=== PATIENT | male | born 1955 | race Two or more races ===

== ENCOUNTER 2024-12-02 14:11 | Emergency (ER) | payer OTHER, SELFPAY ==
[2024-12-02 14:12] VITALS: BMI 22.6
[2024-12-02 14:34] VITALS: BP 131/78; PULSE 80; RESP 18; TEMP 36.7; O2SAT 98
--- NOTE | 2024-12-02 14:36 | XR_ITS ---
Examination: Hand, right 3 views Technique: Hand AP, oblique, lateral 3 views Date and time of exam: December 02, 2024 1445 hours INDICATIONS: Injured the hand today with fourth and fifth digit pain FINDINGS: Acute spiral fractures mid to distal portion proximal phalanx fifth digit No major displacement IMPRESSION: Acute fractures proximal phalanx fifth digit
--- NOTE | 2024-12-02 14:37 | EDNOTE_ITS ---
Upper Extremity Injury RME/HPI General Chief Complaint: Hand/Wrist Problems Stated Complaint: RIGHT HAND PAIN, WORK RELATED INJURY Time Seen by Provider: 12/02/24 14:24 Arrival date/time: 12/02/24 14:11 RME / HPI RME / HPI narrative: 69-year-old male patient was brought in for evaluation regarding right hand injury. Patient review of system reviewed and within normal limits except mentioned in HPI working yesterday climbing the stairs and accidentally injured his right hand resulting to bruising, pain, severity moderate. Denies any other injury no medications taken prior to arrival. Related Data Previous Rx's ?Medication ?Instructions ?Recorded amlodipine 2.5 mg tablet 2.5 mg PO QDAY #30 tabs 01/18 lisinopril 2.5 mg tablet 10 mg (4 x 2.5 mg) PO QDAY # 30 tabs 02/05/21 ibuprofen 800 mg tablet 800 mg PO Q8H PRN pain #30 t abs 12/02/24 Allergies Allergy/AdvReac Type Severity Reaction Status Date / Time No Known Allergies Allergy Verified 12/02/24 14:15 Review of Systems Review of Systems Narrative Review of Systems: Review of system reviewed and within normal limits except mentioned in HPI ED Exam Narrative Physical exam: VITAL SIGNS: Reviewed. GENERAL APPEARANCE: Alert and interactive, follows commands, no acute distress, HEAD AND FACE: Non-traumatic. ENT: PERRL, pink conjunctivitis, eyelid no trauma, Mucous membrane moist. NECK: Supple, nontender, no nuchal rigidity. CHEST: No tenderness, no crepitus, no paradoxical movement, no retractions. LUNGS: Clear, well ventilated, symmetric, no rales, no wheezing, no ronchi, no stridor, good breath sounds bilaterally. HEART: Regular rate, regular rhythm, no murmur, no gallops. ABDOMEN: Soft, positive bowel sounds, nondistended, no guarding, nontender, no rebound, no masses, RECTAL: Deferred. GENITAL: Deferred. NEUROLOGICAL: Gross motor function intact sensory function intact, Appropriate for age. MUSCULOSKELETAL: low back nontender, full range of motion. EXTREMITIES: Right hand swelling, bruising, more on the fifth metacarpal, full range of motion. SKIN: Color pink, dry, no rash, no lacerations, no abrasions, no contusions. LYMPHATICS: Deferred. Course Quality Measures none Orders Category Date Time Status splint [Splint / Immobilizer] STAT Care 12/02/24 16:15 Active XR hand RT 2V Stat Exams 12/02/24 14:36 Completed Ibuprofen Tab [Motrin Tab] Med 12/02/24 14:36 Discontinued 800 mg PO X1 ONE Vital Signs Vital signs: Vital Signs Temperature 98.0 F 12/02/24 14:34 Pulse Rate 80 12/02/24 14:34 Respiratory Rate 18 12/02/24 14:34 Blood Pressure 131/78 H 12/02/24 14:34 Pulse Oximetry (%) 98 12/02/24 14:34 Oxygen Delivery Method Room Air 12/02/24 14:34 Extremity Injury MDM Narrative [facility] Narrative:: 69-year-old male patient was brought in for evaluation regarding right hand injury. Patient review of system reviewed and within normal limits except mentioned in HPI working yesterday climbing the stairs and accidentally injured his right hand resulting to bruising, pain, severity moderate. Denies any other injury no medications taken prior to arrival. X-ray of the right hand showed minimally displaced fracture of the proximal phalanx fifth finger. Ulnar gutter splint applied. Distal neurovascular status intact post splinting. Results discussed with patient. Patient data External records reviewed:: None Clinical information provided by:: patient Social determinants that could affect healthcare access:: none Patient has the following chronic illnesses:: None How is presenting disease/condition affected by chronic disease/condition?: no chronic disease Evaluation data The following diagnostics were reviewed and interpreted by me:: radiology exam(s) Lab and/or radiology exams considered but not ordered:: None Interpretation Summary: See results [facility] Medications / Prescriptions Medications or Prescriptions considered but not ordered:: None Medication administrations:: Medication Administration History Discontinued Medications Ibuprofen (Ibuprofen Tab 400 Mg Tablet) 800 mg PO X1 ONE Stop: 12/02/24 14:37 Last Admin: 12/02/24 15:00 Dose: 800 mg Documented By: Motrin Consultations Consultation(s) initiated? (list below): No Diagnosis Upper Extremity Injury Differential Diagnosis: finger sprain and fracture of hand Most likely diagnosis given after review of the tests above:: Finger fracture Admission Indicated Admission indicated?: not indicated Admission Request Was there a request for admission?: No Disposition Plan Disposition Plan: Discharge Discharge Attestation Discharge Attestation: The patient was given an opportunity to ask questions and understood the discharge instructions. Discharge instructions specifically effects, indications for sooner follow up or return to the emergency department, and the expected course of current diagnosis. Patient condition: Stable Discharge Plan Plan Patient Disposition: HOME (Self Care) Discharge Disposition comment: Stable Prescriptions/Referrals Prescriptions/Med Rec: New ibuprofen 800 mg tablet 800 mg PO Q8H PRN (Reason: pain) Qty: 30 0RF No Action amlodipine 2.5 mg Tablet 2.5 mg PO QDAY Qty: 30 0RF lisinopril 2.5 mg Tablet 10 mg PO QDAY Qty: 30 0RF Referrals: No Primary/Family,Physician [Primary Care Provider] - In 1 week Problem List Clinical Impression: Finger fracture Patient/Caregiver Discharge Instructions Discharge Activity: activity as tolerated Education Materials: ED Fracture, Finger, Closed Additional Instructions: Thank you for the opportunity for serving you today. You are stable for discharged . You are advised to: Follow-up with your Worker's Comp MD in 1 to 2 days Return to ED for worsening of symptoms Increase oral fluids Take medication as prescribed Do not remove your splint for the next 4 weeks or until seen by your Worker's Comp. Print Language: Korean Stand Alone Forms: Isaura Award Info., Patient Portal Info Letter RAYMUNDO/SETH Supervising Physician RAYMUNDO/SETH Supervising Physician: MD Summer
[2024-12-02] MEDS: IBUPROFEN TAB 400 MG TABLET 800 MG PO (15:00)
== END 2024-12-02 16:29 | disposition home or self-care (01) ==
PROVIDERS: Emergency Provider Family Medicine
DX: S62.646A Nondisplaced fracture of proximal phalanx of right little finger, initial encounter for closed fracture (principal); Y93.39 Activity, other involving climbing, rappelling and jumping off; Y99.0 Civilian activity done for income or pay
CPT/HCPCS: 29125; 73120; 73130; 99283; A9270